=== PATIENT | female | born 1955 | race African-American/Black ===

== ENCOUNTER 2016-12-13 16:58 | Emergency (ER) | payer OTHER ==
[~2016-12-13] VITALS: Ht 165.1 cm; Wt 107.3 kg
[~2016-12-13 16:58] MED LIST: FIORICET,ESG1 TABLET PO; FLEXERIL5 MG PO; SINGULAIR10 MG PO
[2016-12-13] MEDS ORDERED: ULTRAM50 MG PO (18:35)
[2016-12-13 19:06] VITALS: BP 141/67
== END 2016-12-13 19:07 | disposition home or self-care (01) ==
LOC: EME 16:58
DX: S80.01XA Contusion of right knee, initial encounter (principal); S90.32XA Contusion of left foot, initial encounter; W18.30XA Fall on same level, unspecified, initial encounter; J45.909 Unspecified asthma, uncomplicated; Z98.84 Bariatric surgery status
CPT/HCPCS: 73564; 73650; 99281; 99284

== ENCOUNTER 2017-05-22 10:18 | Day surgery (SDC) | payer OTHER ==
[~2017-05-22] VITALS: Ht 165.1 cm; Wt 106.1 kg
[~2017-05-22 10:18] MED LIST changes: +PROVENTIL HFA6.7 GM IH; +PROVENTIL,2.5 MG/0.5 IH; +SPIRIVA RESPIMAT4 GM IH; +ULTRAM50 MG PO
[2017-05-22 10:45] VITALS: BP 126/63
[2017-05-22 15:00] VITALS: BP 137/69
[2017-05-22 16:00] VITALS: BP 117/63
== END 2017-05-22 16:20 | disposition home or self-care (01) ==
LOC: SDC 10:18
PROC: 01NG0ZZ Release Tibial Nerve, Open Approach (ICD-10-PCS; principal; 2017-05-22)
DX: G57.52 Tarsal tunnel syndrome, left lower limb (principal); M72.2 Plantar fascial fibromatosis; J45.909 Unspecified asthma, uncomplicated; G47.30 Sleep apnea, unspecified
CPT/HCPCS: J0690; J1100; J1170; J1885; J2405; J3010; S0020